=== PATIENT | female | born 1990 | race Two or more races ===

== ENCOUNTER 2016-07-15 18:01 | Emergency (ER) | payer SELFPAY ==
[~2016-07-15] VITALS: Ht 160 cm; Wt 61.2 kg
[2016-07-15] MEDS ORDERED: HALOPERIDOL LACTATE INJ 5 MG/ML VIAL ONE (18:29)
[2016-07-15] MEDS ORDERED: diphenhydrAMINE HCL 50 MG/ML VIAL ONE (18:29)
[2016-07-15] MEDS ORDERED: diphenhydrAMINE HCL 50 MG/ML VIAL IV ONE (18:30)
[2016-07-15] MEDS ORDERED: LORAZEPAM INJ 2 MG/ML VIAL ONE (18:30)
[2016-07-15] MEDS ORDERED: LORAZEPAM INJ 2 MG/ML VIAL IVP ONE (18:30)
[2016-07-15] MEDS ORDERED: IV NS 0.9% 1,000 ML BAG IV ONE (18:30)
[2016-07-15] MEDS ORDERED: HALOPERIDOL LACTATE INJ 5 MG/ML VIAL IM ONE (18:30)
[2016-07-15] MEDS ORDERED: IV NS 0.9% 1,000 ML ONE (18:40)
[2016-07-15] MEDS ORDERED: IV SET PRIMARY 1 EA INFUS.SET MC ONE (18:40)
[2016-07-15 18:44] LABS: BASOPHILS # (AUTO) 0.1 /CMM (0.0-0.2); BASOPHILS % (AUTO) 0.7 % (0.0-2.0); DIFF TOTAL % 100 %; EOSINOPHILS # (AUTO) 0.2 /CMM (0.0-0.7); EOSINOPHILS % (AUTO) 1.4 % (0.0-6.0); HEMATOCRIT 40 % (33-45); HEMOGLOBIN 13.5 g/dL (11.5-14.8); LYMPHOCYTES # (AUTO) 2.7 /CMM (0.8-4.8); LYMPHOCYTES % (AUTO) 23.2 % (20.0-44.0); MEAN CORPUSCULAR HEMOGLOBIN 31 PG (26.0-33.0); MEAN CORPUSCULAR HGB CONC 34 g/dl (31.0-36.0); MEAN CORPUSCULAR VOLUME 92 fL (82-100); MONOCYTES # (AUTO) 1.2 /CMM (0.1-1.30); MONOCYTES % (AUTO) 10.7 % (2.0-12.0); NEUTROPHILS # (AUTO) 7.4 /CMM (1.8-8.9); PLATELET COUNT (AUTO) 348 /CMM (150-450); RED BLOOD CELL COUNT(AUTO) 4.36 MIL/uL (4.0-5.2); WHITE BLOOD COUNT (AUTO) 11.6 K/uL (4.3-11.0)
[2016-07-15 18:56] LABS: ANION GAP 17 (5-14); CALCIUM, SERUM 9.4 mg/dL (8.5-10.1); CARBON DIOXIDE 26 mmol/L (21-32); CHLORIDE 100 mmol/L (98-107); CREATININE 0.8 mg/dL (0.6-1.3); GFR 86 mL/min (>60); GLUCOSE 109 mg/dL (74-106); POTASSIUM 3.9 mmol/L (3.5-5.1); SODIUM SERUM 139 mmol/L (136-145); UREA NITROGEN, BLOOD 21 mg/dL (7-18)
[2016-07-15 19:04] LABS: ACETAMINOPHEN < 10 ug/ml (10-30); SALICYLATE < 2.8 mg/dL (2.8-20.0)
[2016-07-16 01:14] VITALS: BP 98/58
== END 2016-07-16 07:18 | disposition left against medical advice (07) ==
LOC: ER 18:57
DX: F15.120 Other stimulant abuse with intoxication, uncomplicated (principal); R45.1 Restlessness and agitation; F17.200 Nicotine dependence, unspecified, uncomplicated; R79.89 Other specified abnormal findings of blood chemistry
CPT/HCPCS: 80048; 80329; 82962; 85025; 96361; 96372; 96374; 96375; 99284; A4606; G0480 ×2; J1200; J1630; J2060; J7030; 36415; G6039-TC